=== PATIENT | female | born 1975 | race Caucasian/White ===

== ENCOUNTER 2018-07-18 10:00 | Emergency (ER) | payer SELFPAY ==
[~2018-07-18] VITALS: Ht 180.3 cm; Wt 122.5 kg
[~2018-07-18 10:00] MED LIST: IBUP-1060 PO; LISI-334 PO; METO50TA6 PO; OXYC1TAB15 PO
[2018-07-18 10:35] VITALS: BP 129/77
--- NOTE | 2018-07-18 11:09 | PHYS DOC ---
Past Medical History Past Medical History: Hypertension, Other Past Surgical History: Other Additional Past Surgical Histo: 7 disks Alcohol Use: None Drug Use: None Adult General Chief Complaint Chief Complaint: ABDOMINAL PAIN HPI HPI 43-year-old female presents to ER with complaints of diffuse abdominal pain for the past 2 days. Patient states pain is intermittent. She reports she took 2 hydrocodone last night. Patient denies any nausea vomiting or diarrhea. Patient reports regular bowel movement yesterday. Patient reports she has increased pain suprapubic area denying any vaginal discharge or issues-denies concerns for vaginal infection or STDs. Patient states she has had full hysterectomy 2 years ago. She shouldn't denies any recent falls or injury. Patient reports she has had hernia repair in the past as well. Patient denies pain radiating into lower back. Patient denies any recent travel. Review of Systems Review of Systems Constitutional: Denies fever or chills. Denies fatigue Eyes: Denies change in visual acuity, redness, or eye pain [] HENT: Denies nasal congestion or sore throat [] Respiratory: Denies cough or shortness of breath [] Cardiovascular: Denies chest pain or palpitations GI: Denies nausea, vomiting, bloody stools or diarrhea. Ports diffuse abdominal pain with worse pain in suprapubic area. Denies vaginal bleeding or discharge. Denies concerns for STDs : Denies dysuria or hematuria [] Musculoskeletal: Denies back pain or joint pain [] Integument: Denies rash,swelling or skin lesions [] Neurologic: Denies headache, focal weakness or sensory changes [] All other systems were reviewed and found to be within normal limits, except as documented in this note. Current Medications Current Medications Current Medications Medications (Trade) Dose Ordered Sig/Carlo Start Time Stop Time Status Last Admin Dose Admin Iohexol (Omnipaque 300 Mg/ml) 75 ml 1X ONCE 07/18/18 12:45 07/18/18 12:46 DC 07/18/18 13:02 75 ML Sodium Chloride 1,000 ml @ 1,000 mls/hr 1X ONCE 07/18/18 12:30 07/18/18 13:29 DC 07/18/18 13:00 1,000 MLS/HR Allergies Allergies Allergies Coded Allergies Type Severity Reaction Last Updated Verified No Known Drug Allergies 01/16/16 No Physical Exam Physical Exam Constitutional: Well developed, well nourished, no acute distress, non-toxic appearance. [] HENT: Normocephalic, atraumatic, oropharynx moist, nose normal. [] Eyes: Pupils equal, conjunctiva normal, no discharge. [] Neck: Normal range of motion, no tenderness, supple, no stridor. [] Cardiovascular: Heart rate regular rhythm, no murmur [] Lungs & Thorax: Bilateral breath sounds clear to auscultation. Resp. equal/ nonlabored Abdomen: Bowel sounds normal, soft, tender to palpation mid into suprapubic with no rigidity or distention, no rebound tenderness, no masses, no pulsatile masses. [] Skin: Warm, dry, no erythema, no rash. [] Back: No tenderness, no CVA tenderness. [] Extremities: No tenderness, no cyanosis, no clubbing, ROM intact, no edema. [] Neurologic: Alert and oriented X 3, normal motor function, normal sensory function, no focal deficits noted. [] Psychologic: Affect normal, judgement normal, mood normal. [] Current Patient Data Vital Signs Vital Signs Date Time Temp Pulse Resp B/P (MAP) Pulse Ox O2 Delivery O2 Flow Rate FiO2 07/18/18 10:35 98.8 63 16 129/77 (94) 97 Room Air 98.8 Lab Values Laboratory Tests Test 07/18/18 10:37 07/18/18 11:05 Urine Collection Type Unknown Urine Color Yellow Urine Clarity Clear Urine pH 5.5 Urine Specific [place] 1.010 Urine Protein Negative mg/dL (NEG-TRACE) Urine Glucose (UA) Negative mg/dL (NEG) Urine Ketones (Stick) Negative mg/dL (NEG) Urine Blood Negative (NEG) Urine Nitrite Negative (NEG) Urine Bilirubin Negative (NEG) Urine Urobilinogen Dipstick 0.2 mg/dL (0.2 mg/dL) Urine Leukocyte Esterase Negative (NEG) Urine RBC 0 /HPF (0-2) Urine WBC 1-4 /HPF (0-4) Urine Squamous Epithelial Cells Mod /LPF Urine Bacteria Many /HPF (0-FEW) White Blood Count 7.6 x10^3/uL (4.0-11.0) Red Blood Count 4.78 x10^6/uL (3.50-5.40) Hemoglobin 14.3 g/dL (12.0-15.5) Hematocrit 41.7 % (36.0-47.0) Mean Corpuscular Volume 87 fL (79-100) Mean Corpuscular Hemoglobin 30 pg (25-35) Mean Corpuscular Hemoglobin Concent 34 g/dL (31-37) Red Cell Distribution Width 13.9 % (11.5-14.5) Platelet Count 283 x10^3/uL (140-400) Neutrophils (%) (Auto) 56 % (31-73) Lymphocytes (%) (Auto) 33 % (24-48) Monocytes (%) (Auto) 8 % (0-9) Eosinophils (%) (Auto) 3 % (0-3) Basophils (%) (Auto) 1 % (0-3) Neutrophils # (Auto) 4.3 x10^3uL (1.8-7.7) Lymphocytes # (Auto) 2.5 x10^3/uL (1.0-4.8) Monocytes # (Auto) 0.6 x10^3/uL (0.0-1.1) Eosinophils # (Auto) 0.2 x10^3/uL (0.0-0.7) Basophils # (Auto) 0.1 x10^3/uL (0.0-0.2) Sodium Level 136 mmol/L (136-145) Potassium Level 4.7 mmol/L (3.5-5.1) Chloride Level 104 mmol/L (98-107) Carbon Dioxide Level 24 mmol/L (21-32) Anion Gap 8 (6-14) Blood Urea Nitrogen 11 mg/dL (7-20) Creatinine 0.7 mg/dL (0.6-1.0) Estimated GFR (Cockcroft-Gault) 90.9 BUN/Creatinine Ratio 16 (6-20) Glucose Level 132 mg/dL (70-99) H Calcium Level 9.3 mg/dL (8.5-10.1) Total Bilirubin 0.4 mg/dL (0.2-1.0) Aspartate Amino Transferase (AST) 33 U/L (15-37) Alanine Aminotransferase (ALT) 54 U/L (14-59) Alkaline Phosphatase 117 U/L (46-116) H Total Protein 7.8 g/dL (6.4-8.2) Albumin 3.3 g/dL (3.4-5.0) L Albumin/Globulin Ratio 0.7 (1.0-1.7) L Lipase 117 U/L (73-393) Laboratory Tests 07/18/18 11:05 Laboratory Tests 07/18/18 11:05 Microbiology 07/18/18 Urine Culture - Final, Complete 07/18/18 Urine Culture Result 1 (SARAH) - Final, Complete EKG EKG [] Radiology/Procedures Radiology/Procedures PROCEDURE: CT ABD PELV W/ IV CONTRST ONLY CT of the abdomen and pelvis with contrast, 07/18/2018: HISTORY: Lower abdominal pain Multidetector CT imaging was performed following an IV bolus injection of iodinated contrast material. No oral contrast material was administered for this study. No hepatic abnormality is identified. The gallbladder is unremarkable. The pancreas shows no abnormality. The spleen is of normal size. No renal or adrenal abnormality is detected. There is mild aortoiliac calcific plaquing without evidence of aneurysm. No abdominal or pelvic adenopathy is seen. The uterus is surgically absent. The bowel loops are not dilated. The appendix is visualized and shows no abnormality. No free fluid or free air is evident in the abdomen or pelvis. There is diastases of the rectus abdominous musculature with anterior bulging of the intervening fascia and apparent mesh in this patient with a history of a previous hernia repair. The anterior aspect of the distended urinary bladder extends into this region of fascial and mesh bulging at the midline at the mid to lower pelvic level. No francisca recurrent hernia is seen. Small sclerotic foci are present in the sacral alar bilaterally, unchanged since 02/09/2017. These probably represent bone islands. A lucent lesion with a well-defined sclerotic rim in the intertrochanteric region of the right hip is also unchanged suggesting a benign etiology. IMPRESSION: 1. No acute intra-abdominal abnormality is detected. 2. Repaired anterior abdominal wall hernia at the mid to lower pelvic level with considerable residual anterior fascial and mesh bulging and anterior bladder bulging as described above. 3. Stable bone lesions. PQRS Compliance Statement: One or more of the following individualized dose reduction techniques were utilized for this examination: 1. Automated exposure control 2. Adjustment of the mA and/or kV according to patient size 3. Use of iterative reconstruction technique Electronically signed by: Fer Domínguez MD (07/18/2018 1:48 PM) [facility] DICTATED and SIGNED BY: FER DOMÍNGUEZ MD DATE: 07/18/18 0227 Course & Med Decision Making Course & Med Decision Making Pertinent Labs and Imaging studies reviewed. (See chart for details) 1410: Patient was evaluated in the ER for complaints of mid to lower abdominal pain. Patient was given IV fluids and offered pain medication while in ER- she reported pain was tolerable and so no meds given. She has had stable vital signs. Discussed lab and CT results with pt- WBCs NL at 7.6 no bands. She remains nontoxic in appearance and in no visible distress at this time. Patient was offered pain medicine while in the ER but preferred no medication as symptoms were tolerable. Discussed need for follow-up with general surgery for further care and evaluation-with CT results showing "Repaired anterior abdominal wall hernia at the mid to lower pelvic level with considerable residual anterior fascial and mesh bulging and anterior bladder bulging". Discussed need for follow-up with her surgeon- per records patient had been treated by Dr. Escobedo who had performed her hernia surgery. Will provide pt with prescription for [place] tablets with discharge paperwork. Education provided on signs and symptoms to return to ER for an discharge instructions were discussed. Patient comfortable with discharge plan as discussed. Pt's case and plan of care was discussed with Dr. Gonzales. Haydee Disclaimer Haydee Disclaimer This electronic medical record was generated, in whole or in part, using a voice recognition dictation system. Departure Departure Impression: Primary Impression: Abdominal pain Disposition: 01 HOME, SELF-CARE Condition: STABLE Referrals: SOPHIA FRITZ (PCP) XANDER ESCOBEDO MD Patient Instructions: Abdominal Pain Additional Instructions: Follow-up with your general surgeon Dr. Escobedo-as soon as possible to schedule appointment for further care and reevaluation of abdominal pain. Scripts Hydrocodone/Apap 5-325 (NORCO 5-325 TABLET) 1 Each Tablet 1 TAB PO PRN Q6HRS PRN for PAIN, #10 TAB 0 Refills No driving or drinking taking this medication Prov: NEILJASMIN APRN 07/18/18 JASMIN TREJO APRN Jul 18, 2018 11:09
[2018-07-18 11:14] LABS: BASO # 0.1 x10^3/uL (0.0-0.2); BASO % 1 % (0-3); EOS # 0.2 x10^3/uL (0.0-0.7); EOS % 3 % (0-3); HEMATOCRIT 41.7 % (36.0-47.0); HEMOGLOBIN 14.3 g/dL (12.0-15.5); LYMPH # 2.5 x10^3/uL (1.0-4.8); LYMPH % 33 % (24-48); MEAN CORPUSCULAR HEMOGLOBIN 30 pg (25-35); MEAN CORPUSCULAR HGB CONC 34 g/dL (31-37); MEAN CORPUSCULAR VOLUME 87 fL (79-100); MONO # 0.6 x10^3/uL (0.0-1.1); MONO % 8 % (0-9); NEUT # 4.3 x10^3uL (1.8-7.7); NEUT % 56 % (31-73); PLATELET COUNT 283 x10^3/uL (140-400); RED BLOOD COUNT 4.78 x10^6/uL (3.50-5.40); RED CELL DISTRIBUTION WIDTH 13.9 % (11.5-14.5); WHITE BLOOD COUNT 7.6 x10^3/uL (4.0-11.0)
[2018-07-18 11:21] LABS: CALCIUM 9.3 mg/dL (8.5-10.1); CREATININE 0.7 mg/dL (0.6-1.0); GFR 90.9; POTASSIUM 4.7 mmol/L (3.5-5.1)
[2018-07-18 11:27] LABS: ALBUMIN 3.3 g/dL (3.4-5.0); ALBUMIN/GLOBULIN RATIO 0.7 (1.0-1.7); TOTAL BILIRUBIN 0.4 mg/dL (0.2-1.0); TOTAL PROTEIN 7.8 g/dL (6.4-8.2)
[2018-07-18 11:30] LABS: BILIRUBIN,URINE NEGATIVE (NEG); CLARITY,URINE CLEAR; COLOR,URINE YELLOW; NITRITE,URINE NEGATIVE (NEG); PH,URINE 5.5; PROTEIN,URINE NEGATIVE (NEG-TRACE); UROBILINOGEN,URINE 0.2 mg/dL (0.2 mg/dL)
[2018-07-18 11:38] LABS: SQUAMOUS EPITHELIAL CELL,UR MOD /LPF
[2018-07-18 11:39] LABS: BACTERIA,URINE MANY /HPF (0-FEW); RBC,URINE 0 /HPF (0-2)
[2018-07-18] MEDS ORDERED: IV NORMAL SALINE 1000ML BAG 1,000 ML IV ONE (12:30)
[2018-07-18] MEDS ORDERED: IOHEXOL 300 MG/ML 100ML VIAL. IV ONE (12:45)
--- NOTE | 2018-07-18 13:52 | RAD ---
CT of the abdomen and pelvis with contrast, 07/18/2018: HISTORY: Lower abdominal pain Multidetector CT imaging was performed following an IV bolus injection of iodinated contrast material. No oral contrast material was administered for this study. No hepatic abnormality is identified. The gallbladder is unremarkable. The pancreas shows no abnormality. The spleen is of normal size. No renal or adrenal abnormality is detected. There is mild aortoiliac calcific plaquing without evidence of aneurysm. No abdominal or pelvic adenopathy is seen. The uterus is surgically absent. The bowel loops are not dilated. The appendix is visualized and shows no abnormality. No free fluid or free air is evident in the abdomen or pelvis. There is diastases of the rectus abdominous musculature with anterior bulging of the intervening fascia and apparent mesh in this patient with a history of a previous hernia repair. The anterior aspect of the distended urinary bladder extends into this region of fascial and mesh bulging at the midline at the mid to lower pelvic level. No francisca recurrent hernia is seen. Small sclerotic foci are present in the sacral alar bilaterally, unchanged since 02/09/2017. These probably represent bone islands. A lucent lesion with a well-defined sclerotic rim in the intertrochanteric region of the right hip is also unchanged suggesting a benign etiology. IMPRESSION: 1. No acute intra-abdominal abnormality is detected. 2. Repaired anterior abdominal wall hernia at the mid to lower pelvic level with considerable residual anterior fascial and mesh bulging and anterior bladder bulging as described above. 3. Stable bone lesions. PQRS Compliance Statement: One or more of the following individualized dose reduction techniques were utilized for this examination: 1. Automated exposure control 2. Adjustment of the mA and/or kV according to patient size 3. Use of iterative reconstruction technique Electronically signed by: Fer Domínguez MD (07/18/2018 1:48 PM) [facility]
[2018-07-18] MEDS ORDERED: HYDR-3164 PO (14:24)
== END 2018-07-18 15:27 | disposition home or self-care (01) ==
LOC: ER 10:00
DX: R10.84 Generalized abdominal pain (principal); R10.30 Lower abdominal pain, unspecified; I10 Essential (primary) hypertension; Z90.710 Acquired absence of both cervix and uterus; Z98.890 Other specified postprocedural states
CPT/HCPCS: 36415; 74177; 80053; 81001; 83690; 85025; 87086; 99284; J7030; Q9967

== ENCOUNTER 2019-10-29 02:20 | Emergency (ER) | payer OTHER ==
[~2019-10-29] VITALS: Ht 177.8 cm; Wt 118.0 kg
[~2019-10-29 02:20] MED LIST changes: +HYDR-3164 PO
[2019-10-29 02:34] VITALS: BP 177/95
--- NOTE | 2019-10-29 02:54 | PHYS DOC ---
Past Medical History Past Medical History: Hypertension, Other Past Surgical History: Hysterectomy, Other Additional Past Surgical Histo: 7 disks Smoking Status: Former Smoker Alcohol Use: Occasionally Drug Use: None General Adult EDM: Chief Complaint: SORE THROAT HPI: HPI: Patient is a 44 year old female who presents to the ER secondary to complaint of a sensation of throat swelling and difficulty breathing through her mouth. She has reportedly had multiple strep infections and has been on amoxicillin and recently started on clindamycin yesterday. She has been getting treatment via telephone from her primary care physician. She has no shortness of breath, chest pain, cough, fever. No medications taken prior to arrival besides her antibiotics. Review of Systems: Review of Systems: All other systems negative except as documented in HPI. Heart Score: Risk Factors: Risk Factors: DM, Current or recent (<one month) smoker, HTN, HLP, family history of CAD, obesity. Risk Scores: Score 0 - 3: 2.5% MACE over next 6 weeks - Discharge Home Score 4 - 6: 20.3% MACE over next 6 weeks - Admit for Clinical Observation Score 7 - 10: 72.7% MACE over next 6 weeks - Early Invasive Strategies Current Medications: Current Medications Medications (Trade) Dose Ordered Sig/Carlo Start Time Stop Time Status Last Admin Dose Admin Dexamethasone Sodium Phosphate (Decadron) 20 mg 1X ONCE 10/29/19 03:00 10/29/19 03:01 Allergies: Allergies: Allergies Coded Allergies Type Severity Reaction Last Updated Verified No Known Drug Allergies 01/16/16 No Physical Exam: PE: Constitutional: Well developed, well nourished, no acute distress, non-toxic appearance. [] HENT: Normocephalic, atraumatic, bilateral external ears normal, tonsils are somewhat enlarged although not obstructing and there is mild erythema without exudate noted. Eyes: PERRLA, EOMI, conjunctiva normal, no discharge. [] Neck: Normal range of motion, no tenderness, supple, no stridor. There is no anterior cervical or posterior cervical lymphadenopathy Cardiovascular:Heart rate regular rhythm, no murmur [] Lungs & Thorax: Bilateral breath sounds clear to auscultation [] Abdomen: Bowel sounds normal, soft, no tenderness, no masses, no pulsatile masses. [] Skin: Warm, dry, no erythema, no rash. [] Back: No tenderness, no CVA tenderness. [] Extremities: No tenderness, no cyanosis, no clubbing, ROM intact, no edema. [] Neurologic: Alert and oriented X 3, normal motor function, normal sensory fun ction, no focal deficits noted. [] Psychologic: Affect normal, judgement normal, mood normal. [] Current Patient Data: Vital Signs: Vital Signs Date Time Temp Pulse Resp B/P (MAP) Pulse Ox O2 Delivery O2 Flow Rate FiO2 10/29/19 02:34 98.0 71 12 177/95 (122) 99 Room Air 98.0 EKG: EKG: [] Radiology/Procedures: Radiology/Procedures: [] Course & Med Decision Making: Course & Med Decision Making This patient is seen for sensation of throat fullness which according to her is compromising her difficulty in taking a deep inspiration. On visual examination I see no appreciable swelling that will be causing obstruction. I will give her an injection of Decadron and the patient will be discharged home and she is instructed to continue to take her clindamycin as directed and follow-up as needed or return to the ER for worsening symptoms. Patient voices understanding and is comfortable with this plan. Haydee Disclaimer: Haydee Disclaimer: This electronic medical record was generated, in whole or in part, using a voice recognition dictation system. Departure Departure Impression: Primary Impression: Acute recurrent tonsillitis, unspecified Disposition: 01 HOME, SELF-CARE Condition: STABLE Referrals: NO PCP (PCP) Additional Instructions: Please follow-up with your primary care physician for ongoing symptoms or return to the ER as needed. MARTHA KWAN DO Oct 29, 2019 02:54
[2019-10-29] MEDS ORDERED: DEXAMETHASONE SOD PHOS 20 MG/5 ML VIAL. IM ONE (03:00)
== END 2019-10-29 03:15 | disposition home or self-care (01) ==
LOC: ER 02:20
DX: J03.91 Acute recurrent tonsillitis, unspecified (principal); I10 Essential (primary) hypertension; Z87.891 Personal history of nicotine dependence
CPT/HCPCS: 96372; 99283; J1100